=== PATIENT | male | born 1980 | race Caucasian/White ===

== ENCOUNTER 2018-09-11 01:53 | Emergency (ER) | payer SELFPAY ==
[~2018-09-11] VITALS: Ht 180.3 cm; Wt 117.9 kg
[2018-09-11] MEDS ORDERED: ONDANSETRON ODT 4 MG TAB.RAPDIS SL ONE (02:15)
[2018-09-11] MEDS ORDERED: CYCLOBENZAPRINE HCL 10 MG TABLET PO ONE (02:15)
[2018-09-11] MEDS ORDERED: HYDROCODONE/APAP 10-325 MG TABLET PO ONE (02:15)
[2018-09-11] MEDS ORDERED: ONDANSETRON ODT 4 MG TAB.RAPDIS ONE (02:23)
[2018-09-11] MEDS ORDERED: HYDROCODONE/APAP 10-325 MG TABLET ONE (02:23)
[2018-09-11] MEDS ORDERED: CYCLOBENZAPRINE HCL 10 MG TABLET ONE (02:23)
--- NOTE | 2018-09-11 03:16 | NUR ---
Crutches dispensed. Pt instructed on proper use of crutches. Patient able to demonstrate correct use of crutches.
[2018-09-11] MEDS ORDERED: HYDROMORPHONE 1 MG/1 ML DISP.SYRIN IM ONE (03:30)
[2018-09-11] MEDS ORDERED: HYDROMORPHONE 1 MG/1 ML DISP.SYRIN ONE (03:34)
--- NOTE | 2018-09-11 03:45 | NUR ---
Patient discharged to home in stable conditon with family taking patient home. Written and verbal after care instructions given. Patient verbalizes understanding of instructions. Walked of ER with use of crutches with no distress noted
[2018-09-11 03:49] VITALS: BP 138/87
== END 2018-09-11 03:50 | disposition home or self-care (01) ==
LOC: ER 01:58
DX: S32.018A Other fracture of first lumbar vertebra, initial encounter for closed fracture (principal); S39.011A Strain of muscle, fascia and tendon of abdomen, initial encounter; S83.91XA Sprain of unspecified site of right knee, initial encounter; S93.401A Sprain of unspecified ligament of right ankle, initial encounter; W10.9XXA Fall (on) (from) unspecified stairs and steps, initial encounter; Y93.89 Activity, other specified; Y92.89 Other specified places as the place of occurrence of the external cause; Y99.8 Other external cause status
CPT/HCPCS: 29505; 72100; 72170; 73562; 73590; 73600; 73630; 96372; 99284; J1170; A4663; Q0162